=== PATIENT | female | born 2000 | race Caucasian/White ===

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

== ENCOUNTER 2022-10-27 20:22 | Emergency (ER) | payer MEDICAID ==
[~2022-10-27 20:22] MED LIST changes: +ALBU8.5H6 IH; -RT-ALBUINH IH
--- NOTE | 2022-10-27 21:09 | ED EENT ---
History of Present Illness General Chief Complaint: Fever-Adult/Adol Stated Complaint: CONGESTION FEVER Nursing Triage Note: Pt presents with c/o L side neck pain and a lump on the side of her neck. She states she woke up this morning with it and thought she just slept wrong. She reports fighting a cold recently and a sore throat last week. Pt also reports she was covid positive approx 3 weeks ago. Source: patient Exam Limitations: no limitations History of Present Illness Date Seen by Provider: Oct 27, 2022 Time Seen by Provider: 20:57 Initial Comments 22-year-old female presents to the ED for complaints of swelling in the left side of her neck. She states she also has a throbbing pain in this area. She reports fevers and left ear pain. She states that she had COVID on October 04, states she was feeling better a week later, and was feeling okay for about a week, but then started having sore throat on 10/19. She states that her throat was still hurting yesterday, but states it no longer hurts. She denies chest pain, shortness of air, abdominal pain, nausea, vomiting, diarrhea, cough. Allergies and Home Medications Allergies Coded Allergies: No Known Drug Allergies (Unverified , 03/18/14) Patient Home Medication List Home Medication List Reviewed: Yes Albuterol Sulfate (Ventolin Hfa) 8.5 Gm Hfa.aer.ad, 1-2 PUFF IH, (Reported) Entered as Reported by: DAMASO CASTILLO on 04/14/16 193 Amoxicillin/Potassium Clav (Amox Tr-K Clv 875-125 mg Tab) 875 Mg-125 Mg Tablet, 1 EACH PO BID Prescribed by: Dorothy Lopes on 10/27/222135 Prednisone (Prednisone) 20 Mg Tab, 40 MG PO DAILY Prescribed by: STEPHANIE CLEARY on 04/24/192227 Sulfamethoxazole/Trimethoprim (Sulfamethoxazole-Tmp Ds Tablet) 1 Each Tablet, 1 EACH PO BID Prescribed by: STEPHANIE CLEARY on 04/24/192236 Review of Systems Review of Systems Constitutional: see HPI Past Aqciiaw-Kudsxr-Utksis Hx Patient Social History Tobacco Use?: No Use of E-Cig and/or Vaping dev: No Substance use?: No Alcohol Use?: No Pt feels they are or have been: No Immunizations Up To Date Tetanus Booster (TDap): Less than 5yrs PED Vaccines UTD: Yes Seasonal Allergies Seasonal Allergies: No Past Medical History Surgeries: Yes (LT WRIST REPAIR) Respiratory: Yes Asthma Cardiac: No Neurological: No Reproductive Disorders: No Genitourinary: No Gastrointestinal: No Musculoskeletal: No Endocrine: No HEENT: No Cancer: No Psychosocial: No Integumentary: No Blood Disorders: No Physical Exam Vital Signs Vital Signs - First Documented 10/27/22 20:46 Temp 38.4 Pulse 106 Resp 16 B/P (MAP) 149/86 (107) Height, Weight, BMI Height: 5'10" Weight: 220lbs. oz. 99.400477je; 36.00 BMI Method:Stated General Appearance: WD/WN, no apparent distress Ears: right ear auricle normal, right ear canal normal, right ear TM normal; left ear erythema, left ear tenderness, left ear TM red, left ear TM bulging Mouth/Throat: normal mouth inspection, tonsillar swelling; No trismus, No uvula swelling, No voice changes Neck: supple, tender lateral, other (Mild swelling left-sided neck, lymphadenopathy noted) Cardiovascular: regular rate, rhythm Respiratory: lungs clear, normal breath sounds, no respiratory distress, no accessory muscle use Neurologic/Psychiatric: alert, normal mood/affect Skin: normal color, warm/dry Progress/Results/Core Measures Results/Orders Lab Results Laboratory Tests Test 10/27/22 20:50 Range/Units Influenza Type A (RT-PCR) Not Detected Not Detecte Influenza Type B (RT-PCR) Not Detected Not Detecte Group A Streptococcus Screen NEGATIVE NEGATIVE My Orders Orders - DOROTHY LOPES APRN Influenza A And B By Pcr (10/27/22 20:34) Rapid Strep A Screen (10/27/22 20:40) Acetaminophen Tablet (Tylenol Tablet) (10/27/22 21:15) Throat Culture Strep A Confirm (10/27/22 20:50) Amoxicillin/Clavulanate Tablet (Augmenti (10/27/22 21:45) Medications Given in ED Current Medications Medications Dose Ordered Sig/Gloria Route Start Time Stop Time Status Last Admin Dose Admin Acetaminophen 1,000 mg ONCE ONCE PO 10/27/22 21:15 10/27/22 21:16 DC 4/25/23 21:08 1,000 MG Amoxicillin/ Clavulanate Potassium 875 mg ONCE ONCE PO 10/27/22 21:45 10/27/22 21:46 10/27/22 21:41 875 MG Vital Signs/I&O 10/27/22 10/27/22 20:46 21:08 Temp 38.4 38.4 Pulse 106 Resp 16 B/P (MAP) 149/86 (107) Blood Pressure Mean: 107 Progress Progress Note : Time: 21:11 Progress Note Patient seen and evaluated, resting comfortably in bed, no acute distress. Based on exam and symptoms, patient has a left ear otitis media, swelling and neck is lymphadenopathy due to having left ear infection. Will test for flu and strep as well. Tylenol ordered for fever. 2131 flu and strep negative. Results discussed with patient. Will discharge with antibiotic for otitis media and sinusitis. Departure Impression Primary Impression: Otitis media Additional Impression: Sinusitis Disposition: HOME, SELF-CARE Condition: Stable Departure-Patient Inst. Decision time for Depature: 21:32 Referrals: JACQUI FENTON MD (PCP/Family) Primary Care Physician Patient Instructions: Sinusitis, Adult (DC), Ear Infection ED Add. Discharge Instructions: Complete full course of antibiotic, even if you begin to feel better. Take Tylenol or ibuprofen as needed for pain and fever. Make sure you are drinking plenty of water or noncaffeinated, low sugar beverages. Follow-up with your primary next week. Return for difficulty breathing, swollen throat, change in voice, or any other new, concerning, or worsening symptoms. All discharge instructions reviewed with patient and/or family. Voiced understanding. Scripts Amoxicillin/Potassium Clav (Amox Tr-K Clv 875-125 mg Tab) 875 Mg-125 Mg Tablet 1 EACH PO BID for 7 Days, #14 TAB 0 Refills Prov: DOROTHY LOPES APRN 10/27/22 Work/School Note: Work Release Form Date Seen in the Emergency Department: Oct 27, 2022 Return to Work: Oct 29, 2022 Restrictions: No Restrictions DOROTHY LOPES APRN Oct 27, 2022 21:09
[2022-10-27] MEDS ORDERED: ACETAMINOPHEN 500 MG TAB (TYLENOL) PO ONE (21:15)
[2022-10-27] MEDS ORDERED: AMOX1TAB12 PO (21:36)
[2022-10-27 21:44] VITALS: BP 148/79
[2022-10-27] MEDS ORDERED: AUGMENTIN 875 MG TAB (AMOXICILLIN/CLAVULANATE) PO ONE (21:45)
== END 2022-10-27 21:44 | disposition home or self-care (01) ==
LOC: EDUNIT# 20:22 → ER 20:25
DX: R59.0 Localized enlarged lymph nodes (principal); H66.92 Otitis media, unspecified, left ear; J32.9 Chronic sinusitis, unspecified
CPT/HCPCS: 87430; 87636; 99283

== ENCOUNTER 2023-02-15 17:31 | Emergency (ER) | payer SELFPAY ==
[~2023-02-15 17:31] MED LIST changes: +AMOX1TAB12 PO
[2023-02-15 17:48] VITALS: BP 126/84
== END 2023-02-15 18:54 | disposition left against medical advice (07) ==
LOC: EDUNIT# 17:31 → ER 17:35
DX: R51.9 Headache, unspecified (principal)
CPT/HCPCS: 99281

== ENCOUNTER 2023-05-11 20:50 | Emergency (ER) | payer SELFPAY ==
[~2023-05-11] VITALS: Ht 180 cm; Wt 116.0 kg
[2023-05-11] MEDS ORDERED: NS IV 1000 ML 1,000 ML IV STA (21:16)
--- NOTE | 2023-05-11 21:20 | ED Abdominal Pain ---
General Chief Complaint: Abdominal/GI Problems Stated Complaint: ABD PAIN/VOMITING Nursing Triage Note: TO ED VIA POV AND AMBULATORY TO ROOM 5 WITH C/O ABD PAIN AND N/V SINCE 0200. DENIES DIARRHEA, COUGH, SOA, SORE THROAT. STATES HAS RUNNY NOSE. TRIED CHICKEN BROTH AND IBUPROFEN TODAY, BUT VOMITED AFTER. Source of Information: Patient Exam Limitations: No Limitations (SHARMIN RINALDI) History of Present Illness Date Seen by Provider: May 11, 2023 Time Seen by Provider: 21:18 Initial Comments Patient is a 22-year-old female who presents ED abdominal pain, nausea and vomiting. Symptoms started around 2:00 this morning. Started having pain in her upper abdomen and vomiting. She states she has vomited at least 10 episodes since early this morning. She reports yellowish bile. Denies of any diarrhea. Pain is described as sharp and has been fairly constant. Seems to be worse with eating. She did eat a quesadilla right before her symptoms did start. She denies of any chest pain, cough or shortness of breath. She does report some mild runny nose. She states she has not urinated as much today. She feels dehydrated. Attempted to take ibuprofen but immediately vomited. No history of previous abdominal surgery. She denies of any urinary symptoms. Last menstrual cycle 2 days ago (SHARMIN RINALDI) Allergies and Home Medications Allergies Coded Allergies: No Known Drug Allergies (Unverified , 05/13/23) Patient Home Medication List Home Medication List Reviewed: Yes (JOSE CARLOS CASH MD) Dicyclomine HCl (Dicyclomine HCl) 20 Mg Tablet, 20 MG PO QIDACHS PRN for ABDOMINAL PAIN, (Reported) Entered as Reported by: AROLDO MATAMOROS on 05/13/23 160 Hydrocodone/Acetaminophen (Hydrocodone-Acetamin 5-325 mg) 5 Mg-325 Mg Tablet, 1 TAB PO Q6H PRN for PAIN-MODERATE (5-7), (Reported) Entered as Reported by: AROLDO MATAMOROS on 05/13/23 160 Ondansetron (Ondansetron Odt) 4 Mg Tab.rapdis, 4 MG SL Q8H PRN for NAUSEA/VOMITING-1ST LINE, (Reported) Entered as Reported by: AROLDO MATAMOROS on 05/13/23 1608 Discontinued Medications Albuterol Sulfate (Ventolin Hfa) 8.5 Gm Hfa.aer.ad, 1-2 PUFF IH, (Reported) Discontinued Reason: No Longer Taking Entered as Reported by: DAMASO CASTILLO on 04/14/161931 Amoxicillin/Potassium Clav (Amox Tr-K Clv 875-125 mg Tab) 875 Mg-125 Mg Tablet, 1 EACH PO BID Discontinued Reason: No Longer Taking Prescribed by: Dorothy Veliz on 10/27/222135 Dicyclomine HCl (Dicyclomine HCl) 20 Mg Tablet, 20 MG PO QIDACHS PRN for abdominal pain Discontinued Reason: No Longer Taking Prescribed by: JOSE CARLOS CASH on 05/12/23 0003 Hydrocodone/Acetaminophen (Hydrocodone-Acetamin 5-325 mg) 5 Mg-325 Mg Tablet, 1 TAB PO Q6H PRN for PAIN-MODERATE (5-7) Discontinued Reason: No Longer Taking Prescribed by: JOSE CARLOS CASH on 05/12/23 0004 Ondansetron (Ondansetron Odt) 4 Mg Tab.rapdis, 4 MG SL Q8H PRN for NA USEA/VOMITING Discontinued Reason: No Longer Taking Prescribed by: JOSE CARLOS CASH on 05/12/23 0003 Prednisone (Prednisone) 20 Mg Tab, 40 MG PO DAILY Discontinued Reason: No Longer Taking Prescribed by: STEPHANIE CLEARY on 04/24/192227 Sulfamethoxazole/Trimethoprim (Sulfamethoxazole-Tmp Ds Tablet) 1 Each Tablet, 1 EACH PO BID Discontinued Reason: No Longer Taking Prescribed by: STEPHANIE CLEARY on 04/24/192236 Review of Systems Review of Systems Constitutional: No chills, No diaphoresis; malaise, weakness EENTM: No Double Vision, No Eye Pain Respiratory: Denies Cough, Denies Orthopnea Cardiovascular: Denies Chest Pain Gastrointestinal: Abdominal Pain; Denies Diarrhea; Nausea, Vomiting Genitourinary: Denies Burning, Denies Discharge, Denies Drainage, Denies Frequ ency Musculoskeletal: No back pain, No joint pain Skin: No change in color, No change in hair/nails Psychiatric/Neurological: Denies Anxiety, Denies Depressed (SHARMIN RINALDI) All Other Systems Reviewed Negative Unless Noted: Yes (SHARMIN RINALDI) Past Klkolbk-Rqmtuq-Akoylo Hx Patient Social History Use of E-Cig and/or Vaping dev: Yes E-Cig or Vaping type used: Nicotine Substance use?: Yes Substance type: Marijuana Additional substance use comme: STATES QUIT SMOKING MARIJUANA 2 WEEKS AGO Alcohol Use?: Yes Alcohol Frequency: Once in a while (SHARMIN RINALDI) Immunizations Up To Date Tetanus Booster (TDap): Less than 5yrs PED Vaccines UTD: Yes (SHARMIN RINALDI) Seasonal Allergies Seasonal Allergies: No (SHARMIN RINALDI) Past Medical History Surgery/Hospitalization HX: DENIES Surgeries: Yes ([facility] WRIST REPAIR) Respiratory: Yes Asthma Cardiac: No Neurological: No Reproductive Disorders: No Genitourinary: No Gastrointestinal: No Musculoskeletal: No Endocrine: No HEENT: No Cancer: No Psychosocial: No Integumentary: No Blood Disorders: No (SHARMIN RINALDI) Physical Exam Vital Signs Vital Signs - First Documented 05/11/23 21:02 Temp 36.9 Pulse 87 Resp 16 B/P (MAP) 169/87 (114) Pulse Ox 98 O2 Delivery Room Air (JOSE CARLOS CASH MD) Vital Signs Capillary Refill : Less Than 3 Seconds (SHARMIN RINALDI) Height/Weight/BMI Height: 5'10" Weight: 220lbs. oz. 99.483966jy; 35.00 BMI Method:Stated General Appearance: WD/WN, no apparent distress HEENT: PERRL/EOMI, normal ENT inspection, TMs normal, pharynx normal Neck: non-tender, full range of motion, supple Respiratory: chest non-tender, lungs clear, normal breath sounds, no respiratory distress, no accessory muscle use Cardiovascular: regular rate, rhythm, no edema, no gallop, no JVD Gastrointestinal: tenderness (Right upper quadrant epigastric tenderness. Normal bowel sounds. No rebound or guarding.) Extremities: normal range of motion, non-tender, normal inspection Back: normal inspection, no CVA tenderness Neurologic/Psychiatric: pigskin trimmer II-XII nml as tested, no motor/sensory deficits, alert, normal mood/affect, oriented x 3 Skin: normal color, warm/dry (SHARMIN RINALDI) Progress/Results/Core Measures Results/Orders Lab Results Laboratory Tests Test 05/11/23 21:34 05/11/23 22:46 Range/Units White Blood Count 13.9 H 4.3-11.0 10^3/uL Red Blood Count 5.00 3.80-5.11 10^6/uL Hemoglobin 10.3 L 11.5-16.0 g/dL Hematocrit 35 35-52 % Mean Corpuscular Volume 70 L 80-99 fL Mean Corpuscular Hemoglobin 21 L 25-34 pg Mean Corpuscular Hemoglobin Concent 30 L 32-36 g/dL Red Cell Distribution Width 18.7 H 10.0-14.5 % Platelet Count 312 130-400 10^3/uL Mean Platelet Volume 9.7 9.0-12.2 fL Immature Granulocyte % (Auto) 0 % Neutrophils (%) (Auto) 75 42-75 % Lymphocytes (%) (Auto) 19 12-44 % Monocytes (%) (Auto) 5 0-12 % Eosinophils (%) (Auto) 1 0-10 % Basophils (%) (Auto) 0 0-10 % Neutrophils # (Auto) 10.4 H 1.8-7.8 10^3/uL Lymphocytes # (Auto) 2.6 1.0-4.0 10^3/uL Monocytes # (Auto) 0.6 0.0-1.0 10^3/uL Eosinophils # (Auto) 0.2 0.0-0.3 10^3/uL Basophils # (Auto) 0.1 0.0-0.1 10^3/uL Immature Granulocyte # (Auto) 0.0 0.0-0.1 10^3/uL Sodium Level 140 135-145 MMOL/L Potassium Level 3.9 3.6-5.0 MMOL/L Chloride Level 105 98-107 MMOL/L Carbon Dioxide Level 27 21-32 MMOL/L Anion Gap 8 5-14 MMOL/L Blood Urea Nitrogen 13 7-18 MG/DL Creatinine 0.82 0.60-1.30 MG/DL Estimat Glomerular Filtration Rate 104 BUN/Creatinine Ratio 16 Glucose Level 117 H 70-105 MG/DL Calcium Level 9.1 8.5-10.1 MG/DL Corrected Calcium 9.0 8.5-10.1 MG/DL Total Bilirubin 0.3 0.1-1.0 MG/DL Aspartate Amino Transf (AST/SGOT) 14 5-34 U/L Alanine Aminotransferase (ALT/SGPT) 13 0-55 U/L Alkaline Phosphatase 105 40-136 U/L Total Protein 7.2 6.4-8.2 GM/DL Albumin 4.1 3.2-4.5 GM/DL Lipase 15 8-78 U/L Serum Test, Qualitative NEGATIVE NEGATIVE Urine Color YELLOW Urine Clarity CLEAR Urine pH 7.0 5-9 Urine Specific [place] 1.010 L 1.016-1.022 Urine Protein NEGATIVE NEGATIVE Urine Glucose (UA) NEGATIVE NEGATIVE Urine Ketones NEGATIVE NEGATIVE Urine Nitrite NEGATIVE NEGATIVE Urine Bilirubin NEGATIVE NEGATIVE Urine Urobilinogen 0.2 < = 1.0 MG/DL Urine Leukocyte Esterase NEGATIVE NEGATIVE Urine RBC (Auto) 2+ H NEGATIVE Urine RBC 2-5 H /HPF Urine WBC NONE /HPF Urine Squamous Epithelial Cells 0-2 /HPF Urine Crystals NONE /LPF Urine Bacteria TRACE /HPF Urine Casts NONE /LPF Urine Mucus NEGATIVE /LPF Urine Culture Indicated NO (JOSE CARLOS CASH MD) My Orders Orders - JOSE CARLOS CASH MD Dicyclomine Injection (Dicyclomine Injec (05/11/23 23:40) (JOSE CARLOS CASH MD) Medications Given in ED Current Medications Medications Dose Ordered Sig/Gloria Route Start Time Stop Time Status Last Admin Dose Admin Iohexol 100 ml ONCE ONCE IV 05/11/23 22:30 05/11/23 22:31 DC 05/11/23 22:19 80 ML Ketorolac Tromethamine 30 mg ONCE ONCE IVP 05/11/23 21:30 05/11/23 21:31 DC 05/11/23 21:35 30 MG Ondansetron HCl 4 mg ONCE ONCE IVP 05/11/23 21:30 05/11/23 21:31 DC 05/11/23 21:35 4 MG Sodium Chloride 10 ml NEEDED PRN IV 05/11/23 22:30 05/12/23 00:17 DC 05/11/23 22:19 10 ML Sodium Chloride 100 ml ONCE ONCE IV 05/11/23 22:30 05/11/23 22:31 DC 05/11/23 22:19 80 ML (JOSE CARLOS CASH MD) Vital Signs/I&O 05/11/23 05/12/23 21:02 00:16 Temp 36.9 36.9 Pulse 87 95 Resp 16 16 B/P (MAP) 169/87 (114) 145/111 Pulse Ox 98 99 O2 Delivery Room Air Room Air 05/12/23 00:00 Intake Total 1000 ml Balance 1000 ml (JOSE CARLOS CASH MD) Blood Pressure Mean: 114 Progress Progress Note : Time: 23:50 Progress Note patient care assumed at shift change 11:[address] results pending. I have seen and evaluated the patient. She is resting fairly comfortably but does rate her pain at a "6 or 7. Her vital signs are stable. I have reviewed her laboratory studies including CBC, Chem-12, UA and urine test. Her CBC shows a total white blood cell count of 13.9 with normal differential. Hemoglobin is slightly low at 10.3 with a hematocrit of 35, normal platelets at 312. Her Chem-12 is normal. Her urinalysis shows trace red blood cells, her urine test is negative. Patient has been treated in the emergency department with IV fluids, Toradol, Zofran, dicyclomine. She has improvement in her symptoms. Differential diagnosis includes symptomatic cholelithiasis/biliary colic, acute cholecystitis. Based on history physical and laboratory studies she has biliary colic with cholelithiasis and no findings concerning for acute cholecystitis. I have educated the patient on avoidance of a fatty food diet. We will send her home with nausea medicines, pain medicinesdicyclomine and hydrocodone. Referral to general surgery for evaluation for outpatient Cholecystectomy. Return precautions provided in both verbal and written format. Patient verbalized understanding of the plan of care. All questions were sought and answered. Patient is improved at discharge. (JOSE CARLOS CASH MD) Diagnostic Imaging Diagonstic Imaging: CT Comments CT abdomen and pelvis reviewed and interpreted by shasha amount of gallstones noted. No other acute pathology.; Stat rad read shows gallbladder distention with calculi, hepatosplenomegaly and a small amount of free fluid in the pelvis (JOSE CARLOS CASH MD) Departure Communication (PCP) Reviewed previous ER visits, H&P, lab testing. Differential diagnosis, cholecystitis, with cholelithiasis, gastritis, pancreatitis, gastroenteritis. CBC, CMP, lipase started on liter fluid. She did receive Zofran and a dose of pain medication with improvement of pain. She has tenderness to her epigastric right upper quadrant. White blood count 13.9. Chemistry grossly unremarkable. Negative for . Urinalysis negative for infection. She has no chest pain or shortness of breath. CT abdomen pelvis was ordered since we do not have ultrasound in the evening. Patient was discussed with Dr. Cash who took over care at 11 PM. (SHARMIN RINALDI) Impression Primary Impression: Biliary colic Additional Impression: Cholelithiasis Qualified Codes: K80.20 - Calculus of gallbladder without cholecystitis without obstruction Disposition: HOME, SELF-CARE Condition: Improved Departure-Patient Inst. Decision time for Depature: 23:59 (JOSE CARLOS CASH MD) Referrals: AKIL SAN CHAD C MD (PCP/Family) Primary Care Physician Patient Instructions: Gallstones ED, Gallbladder Diet Add. Discharge Instructions: Try and avoid fatty foods, foods with a lot of cheeses, dairy, fried foods. Take the dicyclomine tablets 30 minutes before eating and once at bedtime to help with abdominal pain. I have prescribed you also some ondansetron/Zofran. 4 mg tablets every 8 hours as needed for nausea and vomiting. Hydrocodone 5 mg tablets for more severe pain. You can take 1 every 6 hours with 1 extra strength Tylenol tablet. If you develop a fever with your abdominal pain, vomiting and pain that is not responding to the normal prescribed medications please return to the emergency department for reevaluation. I have put contact information for our general surgeon on-call, Dr. San. Please call his office tomorrow for a follow-up appointment outpatient to discuss possibly removing your gallbladder. Work/School Note: Work Release Form Date Seen in the Emergency Department: May 11, 2023 Return to Work: May 13, 2023 Copy Copies To 1: JACQUI FENTON MD Copies To 2: AKIL SAN ZACHARY A PA May 11, 2023 21:20 JOSE CARLOS CASH MD May 11, 2023 23:56
[2023-05-11] MEDS ORDERED: ONDANSETRON INJECTION 4 MG/2 ML (SDV) IVP ONE (21:30)
[2023-05-11] MEDS ORDERED: KETOROLAC INJ 30 MG/ML VIAL IVP ONE (21:30)
[2023-05-11 21:40] LABS: BASOPHILS # (AUTO) 0.1 10^3/uL (0.0-0.1); BASOPHILS % (AUTO) 0 % (0-10); EOSINOPHILS # (AUTO) 0.2 10^3/uL (0.0-0.3); EOSINOPHILS % (AUTO) 1 % (0-10); HEMATOCRIT 35 % (35-52); HEMOGLOBIN 10.3 g/dL (11.5-16.0); LYMPHOCYTES # (AUTO) 2.6 10^3/uL (1.0-4.0); LYMPHOCYTES % (AUTO) 19 % (12-44); MEAN CORPUSCULAR HEMOGLOBIN 21 pg (25-34); MEAN CORPUSCULAR HGB CONC 30 g/dL (32-36); MEAN CORPUSCULAR VOLUME 70 fL (80-99); MEAN PLATELET VOLUME 9.7 fL (9.0-12.2); MONOCYTES # (AUTO) 0.6 10^3/uL (0.0-1.0); MONOCYTES % (AUTO) 5 % (0-12); NEUTROPHILS # (AUTO) 10.4 10^3/uL (1.8-7.8); NEUTROPHILS % (AUTO) 75 % (42-75); PLATELET COUNT 312 10^3/uL (130-400); WHITE BLOOD COUNT 13.9 10^3/uL (4.3-11.0)
[2023-05-11 21:57] LABS: ALBUMIN 4.1 GM/DL (3.2-4.5); BILIRUBIN,TOTAL 0.3 MG/DL (0.1-1.0); CALCIUM 9.1 MG/DL (8.5-10.1); CREATININE SERUM 0.82 MG/DL (0.60-1.30); POTASSIUM 3.9 MMOL/L (3.6-5.0); TOTAL PROTEIN 7.2 GM/DL (6.4-8.2)
[2023-05-11] MEDS ORDERED: NS 100 ML (IVPB) BAG IV ONE (22:30)
[2023-05-11] MEDS ORDERED: IOHEXOL 350 MG/ML 100 ML (OMNIPAQUE 350) VIAL IV ONE (22:30)
[2023-05-11] MEDS ORDERED: HOLD METFORMIN - RECEIVED CONTRAST 20 ML VIAL IV SCH (22:30)
[2023-05-11] MEDS ORDERED: CATHETER FLUSH 10 ML SYR IV PRN (22:30)
[2023-05-11 23:07] LABS: BACTERIA,URINE TRACE /HPF; BILIRUBIN,URINE NEGATIVE (NEGATIVE); CLARITY,URINE CLEAR; COLOR,URINE YELLOW; GLUCOSE, URINE (UA) NEGATIVE (NEGATIVE); KETONES,URINE NEGATIVE (NEGATIVE); LEUKOCYTE ESTERASE ,URINE NEGATIVE (NEGATIVE); NITRITE,URINE NEGATIVE (NEGATIVE); PROTEIN,URINE NEGATIVE (NEGATIVE); SQUAMOUS EPITHELIAL CELL,UR 0-2 /HPF
[2023-05-11] MEDS ORDERED: DICYCLOMINE 10 MG/ML 2 ML AMPULE IM STA (23:40)
[2023-05-12] MEDS ORDERED: ACHD5005 PO (00:03)
[2023-05-12] MEDS ORDERED: ONDA4TAB11 SL (00:03)
[2023-05-12] MEDS ORDERED: DICY20TA PO (00:03)
[2023-05-12 00:16] VITALS: BP 145/111
--- NOTE | 2023-05-12 08:43 | Diagnostic Imaging Report ---
Clinical indications: Patient with right quadrant pain with nausea and vomiting x1 day. No surgical history. EXAM: Axial CT scan of the abdomen and pelvis performed with 80 mL of Omnipaque 350 IV contrast. Sagittal and coronal reformatted images were created. Auto Exposure Controls were utilized during the CT exam to meet ALARA standards for radiation dose reduction. COMPARISON: None. FINDINGS: The visualized lung bases are clear. Bones show no significant abnormality. There is a small area of amorphous low-density involving left lobe of liver near the falciform ligament which may represent focal fatty infiltration. Liver measures 21 cm in cranial caudal dimensions. Spleen is upper limits of normal in appearance for size. Otherwise, the liver, spleen, pancreas, and adrenal glands unremarkable. There are multiple gallstones within the gallbladder. The gallbladder is moderately fluid distended with upper limits of normal gallbladder wall thickening of roughly 3 mm. There is no pericholecystic fluid. There are no dilated ducts. Both kidneys are unremarkable no hydronephrosis. There is partial excreted contrast within the bilateral renal collecting systems which limits evaluation for stones. The bladder is partially fluid-filled and unremarkable. Uterus and adnexal structures are unremarkable. There is a small amount of fluid within the pelvis, likely physiologic. The transverse colon all the way to the rectum is probably decompressed. There is no intestinal obstruction. There are multiple small mesenteric and pericecal lymph nodes seen. The appendix is unremarkable. There is no intraabdominal free air. The extra abdominal and extrapelvic soft tissue structures are unremarkable. IMPRESSION: 1: There is cholelithiasis and gallbladder distention. Upper limits of normal gallbladder wall thickening is seen. These findings are equivocal to cholecystitis. If there is continued concern, gallbladder ultrasound would better evaluate. 2: There is hepatomegaly. There is a small area of focal fatty infiltration involving left lobe of liver. The spleen is upper limits of normal. 3: The remainder of this exam shows no other significant abnormality. I agree with [facility] report. Dictated by: Dictated on workstation # [id number]
[2023-05-13] MEDS ORDERED: ONDA4TAB11 SL (16:08)
[2023-05-13] MEDS ORDERED: DICY20TA PO (16:08)
[2023-05-13] MEDS ORDERED: ACHD5005 PO (16:08)
== END 2023-05-12 00:16 | disposition home or self-care (01) ==
LOC: EDUNIT# 20:50 → ER 20:52
DX: K80.70 Calculus of gallbladder and bile duct without cholecystitis without obstruction (principal); F17.290 Nicotine dependence, other tobacco product, uncomplicated
CPT/HCPCS: 36415; 74177; 80053; 81000; 83690; 84703; 85025; 96361; 96372; 96374; 96375

== ENCOUNTER 2023-05-13 10:08 | Day surgery (SDC) | payer SELFPAY ==
[~2023-05-13] VITALS: Ht 108.3 cm; Wt 131.5 kg
[~2023-05-13 10:08] MED LIST changes: +ACHD5005 PO; +DICY20TA PO; +ONDA4TAB11 SL
--- NOTE | 2023-05-13 11:07 | ED Abdominal Pain ---
General Chief Complaint: Abdominal/GI Problems Stated Complaint: ABD PAIN | GALL BLADDER Nursing Triage Note: c/o continued right sided abdominal pain. on wednesday she was seen here and asked to follow up with johnson and her regular doctor however she has not called to make appointments as of yet. 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 Source of Information: Patient, Old Records Exam Limitations: No Limitations History of Present Illness Date Seen by Provider: May 13, 2023 Time Seen by Provider: 10:12 Initial Comments 22yoF with no pertinent PMH coming in due to RUQ pain and n/v. Started a few days ago. Came to this ER a couple days ago and was diagnosed with gallstones. Started on zofran and hydrocodone which she has been taking. No fever that she knows off. Last ate last night. Had some sips of water today. The pain is certainly worse after eating. Denies any dysuria, diarrhea, chest pain, shortness of breath, vaginal bleeding, vaginal discharge, or any other concerns. LMP was a week ago. Allergies and Home Medications Allergies Coded Allergies: No Known Drug Allergies (Unverified , 05/13/23) Patient Home Medication List Home Medication List Reviewed: Yes Albuterol Sulfate (Ventolin Hfa) 8.5 Gm Hfa.aer.ad, 1-2 PUFF IH, (Reported) Entered as Reported by: DAMASO CASTILLO on 04/14/161931 Amoxicillin/Potassium Clav (Amox Tr-K Clv 875-125 mg Tab) 875 Mg-125 Mg Tablet, 1 EACH PO BID Prescribed by: Dorothy Veliz on 10/27/222135 Dicyclomine HCl (Dicyclomine HCl) 20 Mg Tablet, 20 MG PO QIDACHS PRN for abdominal pain Prescribed by: JOSE CARLOS CASH on 05/12/23 0003 Hydrocodone/Acetaminophen (Hydrocodone-Acetamin 5-325 mg) 5 Mg-325 Mg Tablet, 1 TAB PO Q6H PRN for PAIN-MODERATE (5-7) Prescribed by: JOSE CARLOS CASH on 05/12/23 0004 Ondansetron (Ondansetron Odt) 4 Mg Tab.rapdis, 4 MG SL Q8H PRN for NAUSEA/VOMITING Prescribed by: JOSE CARLOS CASH on 05/12/23 0003 Prednisone (Prednisone) 20 Mg Tab, 40 MG PO DAILY Prescribed by: STEPHANIE CLEARY on 04/24/192227 Sulfamethoxazole/Trimethoprim (Sulfamethoxazole-Tmp Ds Tablet) 1 Each Tablet, 1 EACH PO BID Prescribed by: STEPHANIE CLEARY on 04/24/192236 Review of Systems Review of Systems Constitutional: No fever EENTM: No Symptoms Reported Respiratory: No Symptoms Reported Cardiovascular: No Symptoms Reported Gastrointestinal: See HPI Genitourinary: No Symptoms Reported Musculoskeletal: no symptoms reported Skin: no symptoms reported Psychiatric/Neurological: No Symptoms Reported Endocrine: No Symptoms Reported Hematologic/Lymphatic: No Symptoms Reported Past Aeksqoi-Yqrtdm-Vawleb Hx Patient Social History Tobacco Use?: No Use of E-Cig and/or Vaping dev: No Substance use?: No Alcohol Use?: No Pt feels they are or have been: No Immunizations Up To Date Tetanus Booster (TDap): Less than 5yrs PED Vaccines UTD: Yes Influenza Vaccine Up-to-Date: No; Not Current First/Initial COVID19 Vaccinat: not vacc Seasonal Allergies Seasonal Allergies: No Past Medical History Surgery/Hospitalization HX: denies Surgeries: Yes ([facility] WRIST REPAIR) Respiratory: Yes Asthma Cardiac: No Neurological: No Reproductive Disorders: No Genitourinary: No Gastrointestinal: No Musculoskeletal: No Endocrine: No HEENT: No Cancer: No Psychosocial: No Integumentary: No Blood Disorders: No Physical Exam Vital Signs Vital Signs - First Documented 05/13/23 10:19 Temp 35.7 Pulse 72 Resp 16 B/P (MAP) 112/81 (91) Pulse Ox 99 O2 Delivery Room Air Capillary Refill : Less Than 3 Seconds Height/Weight/BMI Height: 5'10" Weight: 220lbs. oz. 99.207090vb; 98.00 BMI Method:Stated General Appearance: WD/WN, no apparent distress HEENT: PERRL/EOMI, normal ENT inspection, pharynx normal Neck: non-tender, full range of motion, supple, normal inspection Respiratory: chest non-tender, lungs clear, normal breath sounds, no respiratory distress, no accessory muscle use Cardiovascular: regular rate, rhythm, no edema, no murmur Gastrointestinal: normal bowel sounds, soft; No distended, No guarding, No rebound; tenderness (RUQ) Extremities: normal range of motion, non-tender, normal inspection, no pedal edema, no calf tenderness, normal capillary refill Back: normal inspection, no CVA tenderness Neurologic/Psychiatric: no motor/sensory deficits, alert, normal mood/affect Skin: normal color, warm/dry Progress/Results/Core Measures Results/Orders My Orders Orders - SHARMIN BINGHAM MD Gallbladder [id number] (05/13/23 10:43) Ed Iv/Invasive Line Start (05/13/23 11:51) Cbc And Automated Diff (05/13/23 11:51) Comprehensive Metabolic Panel (05/13/23 11:51) Hcg,Qualitative Serum (05/13/23 11:51) Lipase (05/13/23 11:51) Protime With Inr (05/13/23 11:51) Partial Thromboplastin Time (05/13/23 11:51) Morphine Injection (Morphine Injection (05/13/23 11:51) Ondansetron Injection (Ondansetron Inj (05/13/23 12:00) Medications Given in ED Current Medications Medications Dose Ordered Sig/Gloria Route Start Time Stop Time Status Last Admin Dose Admin Ondansetron HCl 4 mg ONCE ONCE IVP 05/13/23 12:00 05/13/23 12:01 DC 05/13/23 12:07 4 MG Vital Signs/I&O 05/13/23 10:19 Temp 35.7 Pulse 72 Resp 16 B/P (MAP) 112/81 (91) Pulse Ox 99 O2 Delivery Room Air Blood Pressure Mean: 91 Progress Progress Note : Progress Note 22-year-old female coming in due to right upper quadrant pain in the setting of known gallstones. ABCs were intact and vitals were stable on presentation. Physical exam with positive Blount sign. I reviewed the labs and imaging from a couple days ago, her white blood cell count was slightly elevated and her LFTs were normal. I did see the gallstones on the CT. Ultrasound ordered today, and I once again see the gallstones, gallbladder wall is slightly thickened, no pericholecystic fluid. Very consistent with symptomatic cholelithiasis versus potentially early cholecystitis. She has significant pain despite home hydrocodone, and has failed outpatient management. I contacted Dr. Monreal, he recommends IV antibiotics, fluids, and he will bring her into the hospital to likely take out her gallbladder tomorrow. Diagnostic Imaging Diagonstic Imaging: Ultrasound (gallbladder) Comments NAME: ELOINA MORA [facility] REC#: [id number] PT STATUS: REG ER : 2001 PHYSICIAN: SHARMIN BINGHAM MD ADMIT DATE: 05/13/23/ER Signed Date of Exam:05/13/23 US GALLBLADDER [id number] PROCEDURE: US Gallbladder. TECHNIQUE: Multiple real-time grayscale images were obtained over the right upper quadrant in various projections. INDICATION: Right upper quadrant pain COMPARISON: CT abdomen pelvis of 05/11/2023 FINDINGS: The liver is normal in size and echogenicity. There is no focal hepatic mass. The main portal vein is patent with antegrade flow. Gallbladder filled with numerous gallstones. No gallbladder wall thickening or pericholecystic fluid. The common bile duct measures up to 0.6 cm in diameter. No intrahepatic biliary dilation. The visualized portions of the pancreas are normal. Portions of the head and tail are obscured by overlying bowel gas. The right kidney is normal in size. No hydronephrosis, shadowing calculi, or suspicious mass lesion. IMPRESSION: 1. Cholelithiasis without sonographic features of acute cholecystitis. 2. No biliary obstruction. Dictated by: Dictated on workstation # [id number] Dict: 05/13/23 1155 Trans: 05/13/23 1158 [facility] [id number] Interpreted by: BEN LEYVA MD Electronically signed by: BEN LEYVA MD 05/13/23 1158 Departure Impression Primary Impression: Symptomatic cholelithiasis Disposition: ADMITTED INPATIENT Condition: Stable Admissions Decision to Admit/Date: May 13, 2023 Time/Decision to Admit Time: 11:50 Departure-Patient Inst. Referrals: JACQUI FENTON MD (PCP/Family) Primary Care Physician SHARMIN BINGHAM MD May 13, 2023 11:07
[2023-05-13] MEDS ORDERED: morphine INJ 10 MG/ML 1ML (SYR OR VIAL) IVP STA (11:51)
--- NOTE | 2023-05-13 11:59 | Diagnostic Imaging Report ---
PROCEDURE: US Gallbladder. TECHNIQUE: Multiple real-time grayscale images were obtained over the right upper quadrant in various projections. INDICATION: Right upper quadrant pain COMPARISON: CT abdomen pelvis of 05/11/2023 FINDINGS: The liver is normal in size and echogenicity. There is no focal hepatic mass. The main portal vein is patent with antegrade flow. Gallbladder filled with numerous gallstones. No gallbladder wall thickening or pericholecystic fluid. The common bile duct measures up to 0.6 cm in diameter. No intrahepatic biliary dilation. The visualized portions of the pancreas are normal. Portions of the head and tail are obscured by overlying bowel gas. The right kidney is normal in size. No hydronephrosis, shadowing calculi, or suspicious mass lesion. IMPRESSION: 1. Cholelithiasis without sonographic features of acute cholecystitis. 2. No biliary obstruction. Dictated by: Dictated on workstation # [id number]
[2023-05-13] MEDS ORDERED: ONDANSETRON INJECTION 4 MG/2 ML (SDV) IVP ONE (12:00)
[2023-05-13 12:14] LABS: BASOPHILS % (AUTO) 0 % (0-10); EOSINOPHILS # (AUTO) 0.3 10^3/uL (0.0-0.3); EOSINOPHILS % (AUTO) 4 % (0-10); HEMATOCRIT 33 % (35-52); HEMOGLOBIN 9.6 g/dL (11.5-16.0); LYMPHOCYTES % (AUTO) 32 % (12-44); MEAN CORPUSCULAR HEMOGLOBIN 21 pg (25-34); MEAN CORPUSCULAR HGB CONC 29 g/dL (32-36); MEAN CORPUSCULAR VOLUME 71 fL (80-99); MEAN PLATELET VOLUME 9.3 fL (9.0-12.2); MONOCYTES # (AUTO) 0.5 10^3/uL (0.0-1.0); MONOCYTES % (AUTO) 6 % (0-12); NEUTROPHILS # (AUTO) 5.4 10^3/uL (1.8-7.8); NEUTROPHILS % (AUTO) 58 % (42-75); PLATELET COUNT 269 10^3/uL (130-400); WHITE BLOOD COUNT 9.3 10^3/uL (4.3-11.0)
[2023-05-13 12:24] LABS: ALBUMIN 3.7 GM/DL (3.2-4.5)
[2023-05-13 12:25] LABS: POTASSIUM 3.6 MMOL/L (3.6-5.0); PROTHROMBIN TIME PATIENT 14.1 SEC (12.2-14.7)
[2023-05-13 12:26] LABS: CALCIUM 8.3 MG/DL (8.5-10.1)
[2023-05-13 12:27] LABS: TOTAL PROTEIN 6.7 GM/DL (6.4-8.2)
[2023-05-13 12:29] LABS: BILIRUBIN,TOTAL 0.3 MG/DL (0.1-1.0)
[2023-05-13 12:31] LABS: CREATININE SERUM 0.85 MG/DL (0.60-1.30)
[2023-05-13 12:45] VITALS: BP 111/73
[2023-05-13] MEDS ORDERED: ACETAMINOPHEN 500 MG TABLET PO PRN (13:15)
[2023-05-13] MEDS ORDERED: ONDANSETRON INJECTION 4 MG/2 ML (SDV) IV PRN (13:15)
[2023-05-13] MEDS: CIPROFLOXACIN 400 MG/D5W 200 ML (PRE-MIX) IV SCH (13:22)
[2023-05-13] MEDS: NS IV 1000 ML 1,000 ML IV SCH ×2 (13:23→21:32)
[2023-05-13] MEDS: metroNIDAZOLE 500 MG/100 ML IVPB (PRE-MIX) IV SCH ×2 (13:23→21:32)
--- NOTE | 2023-05-13 13:55 | History & Physical-Surgical ---
History of Present Illness History of Present Illness Patient Consulted On(allyssa/time) 05/13/23 13:50 Date Seen by Provider: May 13, 2023 Time Seen by Provider: 13:50 History of Present Illness Patient is a 22 year old female with past medical history of asthma. Presented to the ED today with RUQ pain and N/V of several days duration. She was admitted to the floor and when seen by me did not appear in any acute distress. She has never had these symptoms in the past. Her pain is exacerbated by eating. She has not eaten since last night. She denies having a fever. She denies having any allergies and denies having previous abdominal surgeries. She had an RUQ ultrasound performed today that showed cholelithiasis without acute cholecystitis and no evidence of biliary obstruction. 22 female began having ruq abdominal pain on Wednesday. Continued to worsen and developed nausea and vmoiting. Sharp pain. No radiation. Had to change diet to make improve some. Certain foods make worse. U/s showed cholelithiasis. Allergies and Home Medications Allergies Coded Allergies: No Known Drug Allergies (Unverified , 05/13/23) Patient Home Medication List Home Medication List Reviewed: Yes Dicyclomine HCl (Dicyclomine HCl) 20 Mg Tablet, 20 MG PO QIDACHS PRN for ABDOMINAL PAIN, (Reported) Entered as Reported by: AROLDO MATAMOROS on 05/13/231607 Last Action: Reviewed Hydrocodone/Acetaminophen (Hydrocodone-Acetamin 5-325 mg) 5 Mg-325 Mg Tablet, 1 TAB PO Q6H PRN for PAIN-MODERATE (5-7), (Reported) Entered as Reported by: AROLDO MATAMOROS on 05/13/231607 Last Action: Reviewed Ondansetron (Ondansetron Odt) 4 Mg Tab.rapdis, 4 MG SL Q8H PRN for NAUSEA/VOMITING-1ST LINE, (Reported) Entered as Reported by: AROLDO MATAMOROS on 05/13/231607 Last Action: Reviewed Discontinued Medications Albuterol Sulfate (Ventolin Hfa) 8.5 Gm Hfa.aer.ad, 1-2 PUFF IH, (Reported) Discontinued Reason: No Longer Taking Entered as Reported by: DAMASO CASTILLO on 04/14/161931 Last Action: Discontinued Amoxicillin/Potassium Clav (Amox Tr-K Clv 875-125 mg Tab) 875 Mg-125 Mg Tablet, 1 EACH PO BID Discontinued Reason: No Longer Taking Prescribed by: Dorothy Veliz on 10/27/222135 Last Action: Discontinued Dicyclomine HCl (Dicyclomine HCl) 20 Mg Tablet, 20 MG PO QIDACHS PRN for abdominal pain Discontinued Reason: No Longer Taking Prescribed by: JOSE CARLOS CASH on 05/12/232 Last Action: Discontinued Hydrocodone/Acetaminophen (Hydrocodone-Acetamin 5-325 mg) 5 Mg-325 Mg Tablet, 1 TAB PO Q6H PRN for PAIN-MODERATE (5-7) Discontinued Reason: No Longer Taking Prescribed by: JOSE CARLOS CASH on 05/12/233 Last Action: Discontinued Ondansetron (Ondansetron Odt) 4 Mg Tab.rapdis, 4 MG SL Q8H PRN for NAUSEA/VOMITING Discontinued Reason: No Longer Taking Prescribed by: JOSE CARLOS CASH on 05/12/232 Last Action: Discontinued Prednisone (Prednisone) 20 Mg Tab, 40 MG PO DAILY Discontinued Reason: No Longer Taking Prescribed by: STEPHANIE CLEARY on 04/24/192227 Last Action: Discontinued Sulfamethoxazole/Trimethoprim (Sulfamethoxazole-Tmp Ds Tablet) 1 Each Tablet, 1 EACH PO BID Discontinued Reason: No Longer Taking Prescribed by: STEPHANIE CLEARY on 04/24/192236 Last Action: Discontinued Past Nsijuth-Wddxms-Nhjjng Hx Patient Social History 2nd Hand Smoke Exposure: No Recent Hopitalizations: No Alcohol Use?: No Immunizations Up To Date Tetanus Booster (TDap): Less than 5yrs PED Vaccines UTD: Yes Seasonal Allergies Seasonal Allergies: No Surgeries History of Surgeries: Yes (LT WRIST REPAIR) Respiratory History of Respiratory Disorde: Yes Respiratory Disorders: Asthma Cardiovascular History of Cardiac Disorders: No Neurological History of Neurological Disord: No Reproductive System Hx Reproductive Disorders: No Genitourinary History of Genitourinary Disor: No Gastrointestinal History of Gastrointestinal Di: No Musculoskeletal History of Musculoskeletal Dis: No Endocrine History of Endocrine Disorders: No HEENT History of HEENT Disorders: No Cancer History of Cancer: No Psychosocial History of Psychiatric Problem: No Integumentary History of Skin or Integumenta: No Blood Transfusions History of Blood Disorders: No Reviewed Nursing Assessment Reviewed/Agree w Nursing PMH: Yes Family Medical History Significant Family History: No Pertinent Family Hx Review of Systems-General Constitutional: No fever, No weakness EENTM: No blurred vision, No double vision Respiratory: No cough, No short of breath Cardiovascular: No chest pain, No palpitations Gastrointestinal: abdominal pain (RUQ); No constipation, No diarrhea; nausea, vomiting Genitourinary: No dysuria, No pain Musculoskeletal: No back pain, No joint pain Skin: No change in color, No change in hair/nails, No dryness, No lesions Psychiatric/Neurological: Denies Anxiety, Denies Depressed, Denies Emotional Problems, Denies Headache, Denies Seizure All Other Systems Reviewed Negative Unless Noted: Yes (Negative excepted noted.) Physical Exam-General Problems Physical Exam Vital Signs Vital Signs - First Documented 05/13/23 10:19 Temp 35.7 Pulse 72 Resp 16 B/P (MAP) 112/81 (91) Pulse Ox 99 O2 Delivery Room Air Capillary Refill : Less Than 3 Seconds General Appearance: WD/WN, no apparent distress HEENT: PERRL/EOMI, normal ENT inspection Neck: non-tender, supple, normal inspection Respiratory: chest non-tender, lungs clear, normal breath sounds, no respiratory distress, no accessory muscle use Cardiovascular: normal peripheral pulses, regular rate, rhythm, no JVD, no murmur Peripheral Pulses: 2+ Radial Pulses (R), 2+ Radial Pulses (L) Gastrointestinal: normal bowel sounds, soft, tenderness Rectal: deferred Back: no CVA tenderness, no vertebral tenderness Extremities: non-tender, normal inspection Neurologic/Psychiatric: alert, oriented x 3 Skin: normal color, warm/dry Lymphatic: no adenopathy Data Review Labs Laboratory Tests 05/13/23 12:05: White Blood Count 9.3, Red Blood Count 4.69, Hemoglobin 9.6L, Hematocrit 33L, Mean Corpuscular Volume 71L, Mean Corpuscular Hemoglobin 21L, Mean Corpuscular Hemoglobin Concent 29L, Red Cell Distribution Width 18.7H, Platelet Count 269, Mean Platelet Volume 9.3, Immature Granulocyte % (Auto) 0, Neutrophils (%) (Auto) 58, Lymphocytes (%) (Auto) 32, Monocytes (%) (Auto) 6, Eosinophils (%) (Auto) 4, Basophils (%) (Auto) 0, Neutrophils # (Auto) 5.4, Lymphocytes # (Auto) 3.0, Monocytes # (Auto) 0.5, Eosinophils # (Auto) 0.3, Basophils # (Auto) 0.0, Immature Granulocyte # (Auto) 0.0, Prothrombin Time 14.1, INR Comment 1.0, Activated Partial Thromboplast Time 36H, Sodium Level 139, Potassium Level 3.6, Chloride Level 105, Carbon Dioxide Level 26, Anion Gap 8, Blood Urea Nitrogen 8, Creatinine 0.85, Estimat Glomerular Filtration Rate 100, BUN/Creatinine Ratio 9, Glucose Level 86, Calcium Level 8.3L, Corrected Calcium 8.5, Total Bilirubin 0.3, Aspartate Amino Transf (AST/SGOT) 13, Alanine Aminotransferase (ALT/SGPT) 13, Alkaline Phosphatase 91, Total Protein 6.7, Albumin 3.7, Lipase 23, Serum Test, Qualitative NEGATIVE Assessment/Plan Assessment/Plan Admission Diagonsis Cholelithiasis Admission Status: Observation Assessment/Plan Acute cholelithiasis -keep overnight -NPO after midnight -PRN pain control -IV antibiotics -plan for laproscopic cholecystectomy tomorrow symptomatic cholelithiasis n/v ruq abdominal pain npo after midnight abx pain control discussed risks and benefits of laparoscopic cholecystectomy with intraoperative cholangiogram all other indicated procedrues. mother and patient understands and agrees with plan to OR tomorrow Supervisory-Addendum Brief Verification & Attestation Participated in pt care: history, MDM, physical Personally performed: exam, history, MDM, supervision of care Care discussed with: Medical Student Procedures: n/a Results interpretation: Verified all documentation Verification and Attestation of Medical Student E/M Service A medical student performed and documented this service in my presence. I reviewed and verified all information documented by the medical student and made modifications to such information, when appropriate. I personally performed the physical exam and medical decision making. Akil San, May 13, 2023,22:26 PRINCESS GREEN May 13, 2023 13:55 AKIL SAN DO May 13, 2023 22:26
[2023-05-13 15:49] VITALS: BP 132/79
[2023-05-13] MEDS ORDERED: DICY20TA PO (16:08)
[2023-05-13] MEDS ORDERED: ONDA4TAB11 SL (16:08)
[2023-05-13] MEDS ORDERED: ACHD5005 PO (16:08)
[2023-05-13 19:09] VITALS: BP 129/80
[2023-05-13] MEDS: morphine INJ 4 MG/ML 1 ML (VIAL/SYRINGE) IV PRN (19:28)
[2023-05-13 23:12] VITALS: BP 122/79
[2023-05-14] VITALS (11 sets, daily range): BP systolic 120–145; BP diastolic 47–81
[2023-05-14] MEDS: CIPROFLOXACIN 400 MG/D5W 200 ML (PRE-MIX) IV SCH ×2 (00:48→11:41)
[2023-05-14] MEDS: metroNIDAZOLE 500 MG/100 ML IVPB (PRE-MIX) IV SCH ×2 (06:07→13:06)
[2023-05-14] MEDS: morphine INJ 4 MG/ML 1 ML (VIAL/SYRINGE) IV PRN ×3 (06:59→17:04)
--- NOTE | 2023-05-14 11:31 | Progress Note - Surgery ---
Subjective Date Seen by a Provider: May 14, 2023 Time Seen by a Provider: 11:29 Subjective/Events-last exam Still with ruq abdominal pain. Not as bad though. NPO. Denies n/v fever sweats chills shortness of breath or chest pain. Ready for surgery. Objective Exam Vital Signs Date Time Temp Pulse Resp B/P (MAP) Pulse Ox O2 Delivery O2 Flow Rate FiO2 05/14/23 08:00 Room Air 05/14/23 07:11 36.7 65 16 126/81 (96) 95 Room Air 05/14/23 04:10 36.7 70 16 135/78 (97) 96 Room Air 05/13/23 23:12 36.9 81 16 122/79 (93) 98 Room Air 05/13/23 19:39 Room Air 05/13/23 19:09 36.6 70 16 129/80 (96) 98 Room Air 05/13/23 15:49 36.4 70 18 132/79 (96) 96 Room Air 05/13/23 12:45 36.4 69 16 111/73 (86) 99 Room Air 05/13/23 12:20 70 18 118/75 99 Room Air I & O 05/14/23 07:00 Intake Total 620 ml Balance 620 ml Capillary Refill : Less Than 3 Seconds General Appearance: No Apparent Distress, WD/WN HEENT: PERRL/EOMI, Normal ENT Inspection Neck: Non Tender, Supple Respiratory: Chest Non Tender, No Accessory Muscle Use, No Respiratory Distress Cardiovascular: Regular Rate, Rhythm, No JVD Peripheral Pulses: 2+ Radial Pulses (R), 2+ Radial Pulses (L) Gastrointestinal: normal bowel sounds, soft, tenderness (ruq) Extremity: Normal Inspection Neurologic/Psychiatric: Alert, Oriented x3 Skin: Normal Color, Warm/Dry Lymphatic: No Adenopathy Results Lab Laboratory Tests 05/13/23 12:05: White Blood Count 9.3, Red Blood Count 4.69, Hemoglobin 9.6L, Hematocrit 33L, Mean Corpuscular Volume 71L, Mean Corpuscular Hemoglobin 21L, Mean Corpuscular Hemoglobin Concent 29L, Red Cell Distribution Width 18.7H, Platelet Count 269, Mean Platelet Volume 9.3, Immature Granulocyte % (Auto) 0, Neutrophils (%) (Auto) 58, Lymphocytes (%) (Auto) 32, Monocytes (%) (Auto) 6, Eosinophils (%) (Auto) 4, Basophils (%) (Auto) 0, Neutrophils # (Auto) 5.4, Lymphocytes # (Auto) 3.0, Monocytes # (Auto) 0.5, Eosinophils # (Auto) 0.3, Basophils # (Auto) 0.0, Immature Granulocyte # (Auto) 0.0, Prothrombin Time 14.1, INR Comment 1.0, Activated Partial Thromboplast Time 36H, Sodium Level 139, Potassium Level 3.6, Chloride Level 105, Carbon Dioxide Level 26, Anion Gap 8, Blood Urea Nitrogen 8, Creatinine 0.85, Estimat Glomerular Filtration Rate 100, BUN/Creatinine Ratio 9, Glucose Level 86, Calcium Level 8.3L, Corrected Calcium 8.5, Total Bilirubin 0.3, Aspartate Amino Transf (AST/SGOT) 13, Alanine Aminotransferase (ALT/SGPT) 13, Alkaline Phosphatase 91, Total Protein 6.7, Albumin 3.7, Lipase 23, Serum Test, Qualitative NEGATIVE Assessment/Plan Assessment/Plan Assessment/Plan symptomatic cholelithiasis n/v ruq abdominal pain npo abx pain control discussed risks and benefits of laparoscopic cholecystectomy with intraoperative cholangiogram all other indicated procedures. mother and patient understands and agrees with plan to OR today, had not new questions. AKIL SAN DO May 14, 2023 11:30
[2023-05-14] MEDS ORDERED: LIDOCAINE 2% w/EPI 1:100,000 20 ML VIAL ONE (13:36)
[2023-05-14] MEDS: LACTATED RINGERS 1,000 ML 1,000 ML IV PRN ×2 (14:10→15:03)
[2023-05-14] MEDS ORDERED: fentaNYL INJECTION 100 MCG/2 ML VIAL ONE ×2 (14:18→14:57)
[2023-05-14] MEDS ORDERED: MIDAZOLAM INJ 2 MG/2 ML VIAL ONE (14:19)
[2023-05-14] MEDS ORDERED: LIDOCAINE 2% w/EPI 1:100,000 20 ML VIAL INJ ONE (14:55)
[2023-05-14] MEDS ORDERED: proPOfol INJECTION 200 MG/20 ML VIAL IV ONE (15:18)
[2023-05-14] MEDS ORDERED: dexAMETHasone INJ 10 MG/ML 1 ML VIAL ONE (15:18)
[2023-05-14] MEDS ORDERED: ONDANSETRON INJECTION 4 MG/2 ML (SDV) ONE (15:18)
[2023-05-14] MEDS ORDERED: ROCURONIUM 50 MG/5 ML VIAL IV ONE (15:19)
[2023-05-14] MEDS ORDERED: LIDOCAINE PF 2% 5 ML VIAL ONE (15:23)
[2023-05-14] MEDS ORDERED: GLYCOPYRROLATE INJ 0.2 MG/ML 2 ML VIAL ONE (15:29)
[2023-05-14] MEDS ORDERED: NEOSTIGMINE 1 MG/1ML 10 ML VIAL ONE (15:29)
[2023-05-14] MEDS ORDERED: SEVOFLURANE (ULTANE) 15 ML INHAL SOLN ONE (15:32)
--- NOTE | 2023-05-14 15:34 | Diagnostic Imaging Report ---
INDICATION: Right upper quadrant pain, cholelithiasis, undergoing cholecystectomy. FINDINGS: Single spot and a single cine loop intraoperative cholangiogram images are submitted. There is cannulation of the extra hepatic biliary tree. Images demonstrate contrast opacification of the biliary system. Biliary tree is not significantly dilated. There was no persistent filling defect to indicate a retained stone. Flow was present into the duodenum. IMPRESSION: Negative laparoscopic cholangiogram. Dictated by: Dictated on workstation # [id number]
--- NOTE | 2023-05-14 15:47 | Progress Note-Post Operative ---
Post-Operative Progess Note Surgeon (s)/Polystyrene Molding Machine Tender (s) Surgeon AKIL SAN DO Polystyrene Molding Machine Tender: Dr. Whaley to assist in retraction dissection and closure Pre-Operative Diagnosis symptomatic cholelithiasis Post-Operative Diagnosis symptomatic cholelithiasis, acute cholecystitis Procedure & Operative Findings Date of Procedure 05/14/23 Procedure Performed/Findings PROCEDURE: Laparoscopic cholecystectomy with intraoperative cholangiogram. COMPLICATIONS: None. PROCEDURE: The patient was taken to the operating suite and was prepped and draped in sterile fashion. A surgical pause was performed. Just superior to the umbilicus, a 12 mm incision was made. Dissection was taken down to the fascia, which was then scored and grasped with a Tabitha and the abdomen was then entered. A 0 Vicryl suture was placed in a [id number] fashion and a [place]un[place] trocar was placed and secured. Pneumoperitoneum was achieved. A 5mm trochar place in the subxyphoid and 2 in the right upper quadrant. The gallbladder was then grasped and elevated by Dr. Whaley. It was dilated and had edema around it. The cystic duct, and cystic artery were then dissected out. Clip was placed on the distal portion of the cystic duct which was then partially transected. An arrow catheter was inserted into the duct. The cholangiogram was then performed. No filing defects and contrast made its way into the duodenum. Catheter removed. Clips were placed on proximal portion of the cystic duct and then the duct was then transected. Clips were placed along the proximal and distal portion of the cystic artery which was then transected. Hook cautery was used to dissect the gallbladder from the gallbladder fossa achieving hemostasis. The gallbladder was placed in an Endobag and removed through the 12 mm trocar site. The abdomen was then reinspected. Copious amounts of irrigation were used to irrigate the abdomen and there were no signs of active bleeding. Hemostasis had been achieved. The 12 mm fascial defect was then closed with 0 Vicryl suture that had been placed in a [id number] fashion. The abdomen was then desufflated, the trocars were removed. The abdomen was then washed and dried. The skin was then closed using 4-0 Monocryl in a subcuticular fashion. The abdomen was washed and dried and Skin Affix was place over incisions. Patient tolerated the procedure well without any complications and was taken to the recovery room in stable condition. Anesthesia Type general Estimated Blood Loss Estimated blood loss (mL): minimal Specimens/Packing Specimens Removed gallbladder AKIL SAN DO May 14, 2023 15:47
[2023-05-14] MEDS ORDERED: DOCU-143 PO (15:50)
[2023-05-14] MEDS ORDERED: ACHD5005 PO (15:50)
--- NOTE | 2023-05-14 15:51 | Discharge Inst-Simple/Standard ---
Discharge Inst-Standard Discharge Medications New, Converted or Re-Newed RX: Transmitted to Pharmacy Patient Instructions/Follow Up Plan of Care/Instructions/FU: 2 weeks Jocelin Activity as Tolerated: No Discharge Diet: Regular Diet Other Inst to Patient Follow up Appt: Make appointment for 2 weeks. Instructions: No lifting greater than 10 pounds. No strenuous activity. May shower in 24 hours, no tub bath or soaking. Use incentive spirometer at home as directed. No Smoking Skin/Wound Care: You have special glue over incision, it will fall off on it's own. Symptoms to Report: Appetite Changes, Extremity Discoloration, Numbness/Tingling, Swelling Increased, Bleeding Excessive, Eyesight Changes, Pain Increased, Urine Color Change, Constipation(Persistent), Fever over 101 degree F, Pain/Pressure in chest, Urinating Difficulty, Cough Up/Vomit Blood, Heart Beat Irreg/Pounding, Pain/Pressure in jaw, Vaginal Bleeding Increase, Cramps in feet or legs, Lightheadedness, Pain/Pressure in shoulder, Diarrhea(Persistent), Memory Changes Suddenly, Questions/Concerns, Weight gain consecutive days, Dizziness/Fainting, Nausea/Vomiting, Shortness of Breath, Weight gain over 2 pounds. If eyes or skin turn yellow notify physician. If questions or concerns contact your physician Or seek help at emergency department. AKIL SAN DO May 14, 2023 15:50
[2023-05-14] MEDS ORDERED: HYDROmorphone INJECTION 2 MG/ML VIAL IV ONE (16:00)
[2023-05-14] MEDS ORDERED: ONDANSETRON INJECTION 4 MG/2 ML (SDV) IVP PRN (16:00)
[2023-05-14] MEDS ORDERED: morphine INJ 10 MG/ML 1ML (SYR OR VIAL) IVP ONE (16:00)
--- NOTE | 2023-05-14 16:05 | Anesthesia-General Post-Op ---
General Patient Condition Mental Status/LOC: Same as Preop Cardiovascular: Satisfactory Nausea/Vomiting: Absent Respiratory: Satisfactory Pain: Controlled Complications: Absent Post Op Complications Complications None Follow Up Care/Instructions Patient Instructions None needed. Anesthesia/Patient Condition Patient Condition Patient is awake in PACU and doing well, no complaints, stable vital signs, no apparent adverse anesthesia problems. No complications reported per nursing. HAN PHAM DO May 14, 2023 16:05
== END 2023-05-14 17:35 | disposition home or self-care (01) ==
LOC: EDUNIT# 10:08 → ER 10:10 → UNDOADMOB 12:31 → SDC 12:31 → 4TH 12:31 → SDC 05-14 17:35 → UNDODISOB 05-14 17:35
PROVIDERS: ATTEND Surgery
DX: K80.12 Calculus of gallbladder with acute and chronic cholecystitis without obstruction (principal)
CPT/HCPCS: 36415; 76000; 76705; 80053; 83690; 84703; 85025; 85610; 85730; 87081; 88304; 96374; 96375; 96376